=== PATIENT | female | born 1985 | race African-American/Black ===

== ENCOUNTER 2020-01-12 00:27 | Emergency (ER) | payer SELFPAY ==
[~2020-01-12] VITALS: Ht 162.6 cm; Wt 70.0 kg
[2020-01-12 01:10] LABS: BASO % 1 % (0-3); EOS % 1 % (0-3); HEMOGLOBIN 11.7 g/dL (12.0-15.5); LYMPH # 1.4 x10^3/uL (1.0-4.8); LYMPH % 35 % (24-48); MEAN CORPUSCULAR HEMOGLOBIN 25 pg (25-35); MEAN CORPUSCULAR HGB CONC 32 g/dL (31-37); MEAN CORPUSCULAR VOLUME 78 fL (79-100); MONO # 0.4 x10^3/uL (0.0-1.1); MONO % 10 % (0-9); NEUT # 2.1 x10^3/uL (1.8-7.7); NEUT % 53 % (31-73); PLATELET COUNT 381 x10^3/uL (140-400); RED BLOOD COUNT 4.64 x10^6/uL (3.50-5.40); RED CELL DISTRIBUTION WIDTH 15.6 % (11.5-14.5); WHITE BLOOD COUNT 3.9 x10^3/uL (4.0-11.0)
[2020-01-12 01:16] LABS: BILIRUBIN,URINE NEGATIVE (NEG); CLARITY,URINE CLEAR; COLOR,URINE YELLOW; NITRITE,URINE NEGATIVE (NEG); PROTEIN,URINE NEGATIVE (NEG-TRACE)
[2020-01-12 01:26] LABS: CREATININE 0.9 mg/dL (0.6-1.0); GFR 86.7; POTASSIUM 4.1 mmol/L (3.5-5.1)
[2020-01-12 01:28] LABS: AMORPHOUS SEDIMENT,UR PRESENT /HPF; BACTERIA,URINE 0 /HPF (0-FEW); BARBITURATES NEG (NEG); BENZODIAZEPINES NEG (NEG); CANNABINOIDS POS (NEG); COCAINE NEG (NEG); METHADONE NEG (NEG); OPIATES NEG (NEG); PHENCYCLIDINE NEG (NEG); RBC,URINE RARE /HPF (0-2); WBC,URINE RARE /HPF (0-4)
[2020-01-12 01:30] LABS: ACETAMIN < 2 mcg/ml (10-30); ETHANOL 13 mg/dL (0-10); SALIC < 2.8 mg/dL (2.8-20.0)
[2020-01-12 01:30] LABS: AMPHETAMINE/METHAMPHETAMINE NEG (NEG)
[2020-01-12 01:33] LABS: ALBUMIN 3.3 g/dL (3.4-5.0); ALBUMIN/GLOBULIN RATIO 0.9 (1.0-1.7); TOTAL BILIRUBIN 0.1 mg/dL (0.2-1.0); TOTAL PROTEIN 6.9 g/dL (6.4-8.2)
--- NOTE | 2020-01-12 04:53 | PHYS DOC ---
Past Medical History Past Medical History: No Pertinent History Additional Past Medical Histor: MS Past Surgical History: No Surgical History Smoking Status: Never Smoker Alcohol Use: None Drug Use: None General Adult EDM: Chief Complaint: ALTERED MENTAL STATUS HPI: HPI: Patient is a 34 year old female who was brought here by EMS from home due to chest pain and heart palpitation after she ate several doses of cannabis edible tonight. Patient said she ate one and did not have the expected effects so she ate several more. Then 1 hour later she started having heart palpitation and chest pain, feeling giddy so she called EMS to take her here. She denied suicidal ideation. No shortness of air. Review of Systems: Review of Systems: Constitutional: Denies fever or chills. [] Eyes: Denies change in visual acuity. [] HENT: Denies nasal congestion or sore throat. [] Respiratory: Denies cough or shortness of breath. [] Cardiovascular: Positive for chest pain and heart palpitation, no edema. [] GI: Denies abdominal pain, nausea, vomiting, bloody stools or diarrhea. [] : Denies dysuria. [] Musculoskeletal: Denies back pain or joint pain. [] Integument: Denies rash. [] Neurologic: Denies headache, focal weakness or sensory changes. [] Endocrine: Denies polyuria or polydipsia. [] Lymphatic: Denies swollen glands. [] Psychiatric: Denies depression or anxiety. [] Heart Score: Risk Factors: Risk Factors: DM, Current or recent (<one month) smoker, HTN, HLP, family history of CAD, obesity. Risk Scores: Score 0 - 3: 2.5% MACE over next 6 weeks - Discharge Home Score 4 - 6: 20.3% MACE over next 6 weeks - Admit for Clinical Observation Score 7 - 10: 72.7% MACE over next 6 weeks - Early Invasive Strategies Allergies: Allergies: Allergies Coded Allergies Type Severity Reaction Last Updated Verified citric acid Allergy Severe SWELLING, HIVES, RASH, ITCHING 08/06/13 Yes glatiramer Allergy Severe SKIN TURNS RED, SWELLING, THROAT TIGHTNESS 08/06/13 Yes Physical Exam: PE: Constitutional: Well developed, well nourished, no acute distress, non-toxic appearance. [] HENT: Normocephalic, atraumatic, bilateral external ears normal, oropharynx moist, no oral exudates, nose normal. [] Eyes: PERRLA, EOMI, conjunctiva normal, no discharge. [] Neck: Normal range of motion, no tenderness, supple, no stridor. [] Cardiovascular:Heart rate regular rhythm, no murmur [] Lungs & Thorax: Bilateral breath sounds clear to auscultation [] Abdomen: Bowel sounds normal, soft, no tenderness, no masses, no pulsatile masses. [] Skin: Warm, dry, no erythema, no rash. [] Back: No tenderness, no CVA tenderness. [] Extremities: No tenderness, no cyanosis, no clubbing, ROM intact, no edema. [] Neurologic: Alert and oriented X 3, normal motor function, normal sensory function, no focal deficits noted. [] Psychologic: Affect normal, judgement normal, mood normal. [] Current Patient Data: Labs: Laboratory Tests Test 01/12/20 00:59 01/12/20 01:05 01/12/20 01:07 White Blood Count 3.9 x10^3/uL (4.0-11.0) L Red Blood Count 4.64 x10^6/uL (3.50-5.40) Hemoglobin 11.7 g/dL (12.0-15.5) L Hematocrit 36.0 % (36.0-47.0) Mean Corpuscular Volume 78 fL (79-100) L Mean Corpuscular Hemoglobin 25 pg (25-35) Mean Corpuscular Hemoglobin Concent 32 g/dL (31-37) Red Cell Distribution Width 15.6 % (11.5-14.5) H Platelet Count 381 x10^3/uL (140-400) Neutrophils (%) (Auto) 53 % (31-73) Lymphocytes (%) (Auto) 35 % (24-48) Monocytes (%) (Auto) 10 % (0-9) H Eosinophils (%) (Auto) 1 % (0-3) Basophils (%) (Auto) 1 % (0-3) Neutrophils # (Auto) 2.1 x10^3/uL (1.8-7.7) Lymphocytes # (Auto) 1.4 x10^3/uL (1.0-4.8) Monocytes # (Auto) 0.4 x10^3/uL (0.0-1.1) Eosinophils # (Auto) 0.0 x10^3/uL (0.0-0.7) Basophils # (Auto) 0.0 x10^3/uL (0.0-0.2) Sodium Level 141 mmol/L (136-145) Potassium Level 4.1 mmol/L (3.5-5.1) Chloride Level 107 mmol/L (98-107) Carbon Dioxide Level 26 mmol/L (21-32) Anion Gap 8 (6-14) Blood Urea Nitrogen 12 mg/dL (7-20) Creatinine 0.9 mg/dL (0.6-1.0) Estimated GFR (Cockcroft-Gault) 86.7 BUN/Creatinine Ratio 13 (6-20) Glucose Level 131 mg/dL (70-99) H Calcium Level 9.0 mg/dL (8.5-10.1) Magnesium Level 2.2 mg/dL (1.8-2.4) Total Bilirubin 0.1 mg/dL (0.2-1.0) L Aspartate Amino Transferase (AST) 19 U/L (15-37) Alanine Aminotransferase (ALT) 21 U/L (14-59) Alkaline Phosphatase 33 U/L (46-116) L Total Protein 6.9 g/dL (6.4-8.2) Albumin 3.3 g/dL (3.4-5.0) L Albumin/Globulin Ratio 0.9 (1.0-1.7) L Salicylates Level < 2.8 mg/dL (2.8-20.0) L Salicylate Last Dose Date Unk Salicylate Last Dose Time Unk Acetaminophen Level < 2 mcg/ml (10-30) L Acetaminophen Last Dose Date Unk Acetaminophen Last Dose Time Unk Ethyl Alcohol Level 13 mg/dL (0-10) H Urine Collection Type U cath Urine Color Yellow Urine Clarity Clear Urine pH 6.0 (<5.0-8.0) Urine Specific [place] >=1.030 (1.000-1.030) Urine Protein Negative mg/dL (NEG-TRACE) Urine Glucose (UA) 500 mg/dL (NEG) Urine Ketones (Stick) Negative mg/dL (NEG) Urine Blood Negative (NEG) Urine Nitrite Negative (NEG) Urine Bilirubin Negative (NEG) Urine Urobilinogen Dipstick 1.0 mg/dL (0.2 mg/dL) Urine Leukocyte Esterase Negative (NEG) Urine RBC Rare /HPF (0-2) Urine WBC Rare /HPF (0-4) Urine Squamous Epithelial Cells Few /LPF Urine Amorphous Sediment Present /HPF Urine Bacteria 0 /HPF (0-FEW) Urine Mucus Mod /LPF Urine Opiates Screen Neg (NEG) Urine Methadone Screen Neg (NEG) Urine Barbiturates Neg (NEG) Urine Phencyclidine Screen Neg (NEG) Urine Amphetamine/Methamphetamine Neg (NEG) Urine Benzodiazepines Screen Neg (NEG) Urine Cocaine Screen Neg (NEG) Urine Cannabinoids Screen Pos (NEG) Urine Ethyl Alcohol Pos (NEG) POC Urine HCG, Qualitative Hcg negative (Negative) Laboratory Tests 01/12/20 00:59 Laboratory Tests 01/12/20 00:59 Vital Signs: Vital Signs Date Time Temp Pulse Resp B/P (MAP) Pulse Ox O2 Delivery O2 Flow Rate FiO2 01/12/20 01:08 97.3 119 12 123/77 (92) 99 Room Air 97.3 EKG: EKG: EKG was done 0 37, heart rate of 118, sinus tachycardia, no ST segment elevation Radiology/Procedures: Radiology/Procedures: [] Course & Med Decision Making: Course & Med Decision Making Pertinent Labs and Imaging studies reviewed. (See chart for details) [] Dragon Disclaimer: Dragon Disclaimer: This electronic medical record was generated, in whole or in part, using a voice recognition dictation system. Departure Departure Impression: Primary Impression: Substance abuse Additional Impression: Chest pain Disposition: 01 DC HOME SELF CARE/HOMELESS Condition: IMPROVED Referrals: NAMAN BELLO (PCP) please follow up with your doctor as needed Patient Instructions: Chest Pain (Nonspecific), Substance Abuse-Brief Additional Instructions: Thank you for visiting our Emergency Department. We appreciate you trusting us with your care. If any additional problems come up don't hesitate to return to visit us. Please follow up with your primary care provider so they can plan additional care if needed and know about the problem that you had. If symptoms worsen come back to the Emergency Department. Any concerning symptoms that start such as chest pain, shortness of air, weakness or numbness on one side of the body, running high fevers or any other concerning symptoms return to the ER. MARIA ISABEL COHEN DO Jan 12, 2020 04:53
[2020-01-12 05:00] VITALS: BP 123/82
--- NOTE | 2020-01-12 05:56 | RAD ---
EXAM: CHEST ONE VIEW. HISTORY: Chest pain. COMPARISON: None. FINDINGS: A frontal view of the chest is obtained. The inspiration is small. There is mild atelectasis in the bases. There is no pneumothorax or pleural effusion. The heart is not enlarged. IMPRESSION: 1. No confluent infiltrates. Electronically signed by: Zachary Mobley MD (01/12/2020 5:53 AM) [facility]
== END 2020-01-12 04:56 | disposition home or self-care (01) ==
LOC: ER 00:27
DX: F12.10 Cannabis abuse, uncomplicated (principal); Z91.018 Allergy to other foods; Z88.8 Allergy status to other drugs, medicaments and biological substances
CPT/HCPCS: 36415; 71045; 80053; 80307; 80329; 81001; 81025; 83735; 85025; 93005; 99285; G0480